=== PATIENT | male | born 1995 | race African-American/Black ===

== ENCOUNTER 2020-07-09 15:15 | Observation (INO) ==
[2020-07-09 15:30] VITALS: BMI 23.0
[2020-07-09] MEDS ORDERED: NS 500 ML IV 1,000 ML IV ONE (15:52)
[2020-07-09] MEDS ORDERED: ZOFRAN INJ 4 MG VIAL IVP ONE (15:56)
[2020-07-09] MEDS ORDERED: ZOFRAN INJ 4 MG VIAL ONE (15:59)
[2020-07-09] MEDS ORDERED: NS 1000 ML 1,000 ML ONE ×3 (15:59→22:14)
--- NOTE | 2020-07-09 16:00 | DR.HYPOGLY ---
HPI Time Seen Time Seen by Provider: 07/09/20 15:37 PCP Primary Care Physician: NFD Complaint Chief Complaint Doctors Comments: denies fever, cough Chief Complaint:: PT C/O N/V THAT STARTED THIS MORNING. PT STATES HE THINKS HIS BLOOD SUGAR IS ELEVATED AND HE THINKS HE IS IN DKA. COVID-19 Coronavirus risk:travel/contact w/high risk person: No Has patient experienced Coronavirus symptoms: No Source History Provided: Patient Mode of Arrival Mode of Arrival: Ambulatory Timing Onset of Chief Complaint: 07/09/20 PMH PMH Past Medical History: Yes Past Medical History: Diabetes and GERD Past Surgical History: No Family History History of Family Medical Conditions: Yes Family Medical History: Diabetes Mellitus and Hypertension Social History Does any household member use tobacco: No Alcohol Use: None Do you use any recreational Drugs:: No Lives With: Family Lives Where: Home Travel Risk Coronavirus risk:travel/contact w/high risk person: No Has patient experienced Coronavirus symptoms: No Infectious screening In the last 2 months have you had wt loss of >10#?: NO Have you had fever, night sweats or hemotysis?: No Have you traveled outside the country in the last 6 months?: No Isolation: Standard ROS Review of Systems Constitutional: No Symptoms Reported Eyes: No Symptoms Reported ENTM: No Symptoms Reported Respiratoy: No Symptoms Reported Cardiovascular: No Symptoms Reported Gastrointestinal/Abdominal: Vomiting Genitourinary: No Symptoms Reported Neurological: No Symptoms Reported Musculoskeletal: No Symptoms Reported Integumentary: No Symptoms Reported Hematologic/Lymphatic: No Symptoms Reported Endocrine: No Symptoms Reported Psychiatric: No Symptoms Reported All Other Systems: Reviewed and Negative PE Vital Signs Vitals: Temperature 98.2 F Pulse Rate [Right Radial] 121 Pulse Rate 113 Respiratory Rate 18 Blood Pressure [Left Arm] 111/72 Blood Pressure 114/63 O2 Sat by Pulse Oximetry 99 General Limitations: No Limitations and Language Barrier General Appearance: Alert and In No Apparent Distress Eyes Eye exam: Normal Appearance, PERRL and EOMI ENT ENT Exam: Normal Exam and Normal Oropharynx Nose Exam: Normal Nose Exam Mouth Exam: Normal Inspection Throat Exam: Normal Inspection Neck Neck Exam: Normal Inspection, Full ROM and Trachea Midline Chest Chest Inspection: Normal Inspection Respiratory Respiratory Exam: Normal Lung Sounds Bilat Respiratory Exam: Bilateral: Clear to Auscultation Cardiovascular Cardiovascular Exam: Tachycardia Abdominal Exam Abdominal Exam: Normal Inspection, Normal Bowel Sounds and Soft Extremities Extremities Exam: Normal Inspection and Full ROM Back Back Exam: Normal Inspection, Full ROM and Tenderness Neurologic Neurological Exam: Alert, Oriented X3 and CN II-XII Intact Speech: Fluid Speech Cranial Nerve Exam: EOM Function (II, III, IV, ): Normal Cerebellar Function: Normal Gait Psychiatric Psychiatric Exam: Flat Affect Skin Skin Exam: Normal Color COURSE Treatment Treatment: 2117: case discussed with DR. Anthony, admit ROR Labs Reviewed Result Diagrams: 07/09/20 16:05 07/09/20 16:05 Laboratory: WBC 15.2 X10^3/uL (3.6-10.0) H 07/09/20 16:05 RBC 4.82 X10^6/uL (4.7-6.0) 07/09/20 16:05 Hgb 14.4 g/dL (13.5-18.0) 07/09/20 16:05 Hct 44.8 % (42.0-54.0) 07/09/20 16:05 MCV 92.9 fL (80.0-100.0) 07/09/20 16:05 MCH 29.9 pg (27.0-34.0) 07/09/20 16:05 MCHC 32.2 g/dL (33.0-35.0) L 07/09/20 16:05 RDW 12.9 % (11.6-16.5) 07/09/20 16:05 Plt Count 282 X10^3/uL (150.0-450.0) 07/09/20 16:05 MPV 9.4 fL (7.4-11.0) 07/09/20 16:05 Neut % (Auto) 86.3 % (42.0-75.0) H 07/09/20 16:05 Lymph % (Auto) 9.4 % (21.0-51.0) L 07/09/20 16:05 [place] % (Auto) 3.7 % (0.0-13.0) 07/09/20 16:05 Eos % (Auto) 0.1 % (0.9-2.9) L 07/09/20 16:05 Baso % (Auto) 0.5 % (0.2-1.0) 07/09/20 16:05 Neut # (Auto) 13.1 x10^3/uL (2.2-4.8) H 07/09/20 16:05 Lymph # (Auto) 1.4 X10^3/uL (1.3-2.9) 07/09/20 16:05 [place] # (Auto) 0.6 x10^3/uL (0.3-0.8) 07/09/20 16:05 Eos # (Auto) 0.0 x10^3/uL (0.0-0.2) 07/09/20 16:05 Baso # (Auto) 0.1 X10^3/uL (0.0-0.1) 07/09/20 16:05 Absolute Nucleated RBC 0.0 /100WBC 07/09/20 16:05 Sample Site Lb 07/09/20 20:49 ABG pH 7.320 (7.35-7.45) L 07/09/20 20:49 ABG pCO2 38.0 mmHg (35.0-45.0) 07/09/20 20:49 ABG pO2 93.0 mmHg (80.0-100.0) 07/09/20 20:49 ABG HCO3 19.6 mmol/L (22-26) L 07/09/20 20:49 ABG O2 Saturation 97.0 % (90-100) 07/09/20 20:49 ABG Base Excess -6.0 mmol/L (-2.0-2.0) L 07/09/20 20:49 [place] Test N/a 07/09/20 20:49 A-a Gradient 9.0 mmHg 07/09/20 20:49 FiO2 21.0 07/09/20 20:49 Blood Gas Comments Oscar well ae 07/09/20 20:49 Sodium 133 mmol/L (136-145) L 07/09/20 16:05 Corrected Sodium 144 mmol/L (136-145) 07/09/20 16:05 Potassium 5.0 mmol/L (3.5-5.1) 07/09/20 16:05 Chloride 91 mmol/L (98-107) L 07/09/20 16:05 Carbon Dioxide 21.6 mmol/L (21-32) 07/09/20 16:05 BUN 28 mg/dL (7-18) H 07/09/20 16:05 Creatinine 1.70 mg/dL (0.70-1.30) H 07/09/20 16:05 Est GFR (MDRD) Af Amer > 60 (>60) 07/09/20 16:05 Est GFR (MDRD) Non-Af 52 (>60) L 07/09/20 16:05 Glucose 542 mg/dL (65-99) H* 07/09/20 16:05 POC Glucose (mg/dL) 258 mg/dL (65-99) H 07/09/20 22:18 Calcium 10.3 mg/dL (8.5-10.1) H 07/09/20 16:05 Corrected Calcium TNP 07/09/20 16:05 Total Bilirubin 0.70 mg/dL (0.2-1.0) 07/09/20 16:05 AST 21 Units/L (15-37) 07/09/20 16:05 ALT 27 Units/L (12-78) 07/09/20 16:05 Alkaline Phosphatase 91 Units/L (46-116) 07/09/20 16:05 Total Protein 8.9 g/dL (6.4-8.2) H 07/09/20 16:05 Albumin 4.6 g/dL (3.4-5.0) 07/09/20 16:05 Globulin 4.3 g/dL (2.5-4.5) 07/09/20 16:05 Albumin/Globulin Ratio 1.1 Ratio (1.1-2.1) 07/09/20 16:05 Lipase 40 Units/L (73-393) L 07/09/20 16:05 Acetone, Semi-Quant Moderate (NEGATIVE) H 07/09/20 19:45 SARS-CoV-2 (PCR) Negative (NEGATIVE) 07/09/20 20:58 Opioid Opioid Risk Tool Age (Mitesh box if 16-45): No History of Preadolescent Sexual Abuse: No Total: 0 Total Score Risk Category: Low Risk Copyright: [employer] predicting aberrant behaviors Diagnosis Discharge Problem: DKA (diabetic ketoacidoses) Qualifiers: Diabetes mellitus type: type 1 Diabetes mellitus complication detail: without coma Qualified Code(s): E10.10 - Type 1 diabetes mellitus with ketoacidosis without coma Instructions Forms: Precautions for COVID19 Patient Portal Social Distancing
[2020-07-09 16:18] LABS: BASOPHILS # (AUTO) 0.1 X10^3/uL (0.0-0.1); BASOPHILS % (AUTO) 0.5 % (0.2-1.0); EOSINOPHILS % (AUTO) 0.1 % (0.9-2.9); HEMATOCRIT 44.8 % (42.0-54.0); HEMOGLOBIN 14.4 g/dL (13.5-18.0); LYMPHOCYTES # (AUTO) 1.4 X10^3/uL (1.3-2.9); LYMPHOCYTES % (AUTO) 9.4 % (21.0-51.0); MEAN CORPUSCULAR HEMOGLOBIN 29.9 pg (27.0-34.0); MEAN CORPUSCULAR HGB CONC 32.2 g/dL (33.0-35.0); MEAN CORPUSCULAR VOLUME 92.9 fL (80.0-100.0); MEAN PLATELET VOLUME 9.4 fL (7.4-11.0); MONOCYTES # (AUTO) 0.6 x10^3/uL (0.3-0.8); MONOCYTES % (AUTO) 3.7 % (0.0-13.0); NEUTROPHILS # (AUTO) 13.1 x10^3/uL (2.2-4.8); NEUTROPHILS % (AUTO) 86.3 % (42.0-75.0); PLATELET COUNT 282 X10^3/uL (150.0-450.0); RED BLOOD COUNT 4.82 X10^6/uL (4.7-6.0); RED CELL DISTRIBUTION WIDTH 12.9 % (11.6-16.5); WHITE BLOOD COUNT 15.2 X10^3/uL (3.6-10.0)
[2020-07-09 16:36] LABS: ALANINE AMINOTRANSFERASE 27 Units/L (12-78); ALBUMIN 4.6 g/dL (3.4-5.0); ALKALINE PHOSPHATASE 91 Units/L (46-116); ASPARTATE AMINO TRANSFERASE 21 Units/L (15-37); BLOOD UREA NITROGEN 28 mg/dL (7-18); CALCIUM 10.3 mg/dL (8.5-10.1); CARBON DIOXIDE 21.6 mmol/L (21-32); CHLORIDE 91 mmol/L (98-107); LIPASE 40 Units/L (73-393); SODIUM 133 mmol/L (136-145); TOTAL PROTEIN 8.9 g/dL (6.4-8.2); eGFR NON BLACK RACES 52 (>60)
[2020-07-09 16:39] LABS: COR NA(FOR HYPERGLY) 144 mmol/L (136-145)
[2020-07-09] MEDS ORDERED: HumuLIN R ONE ×4 (17:05→22:29)
[2020-07-09] MEDS ORDERED: HumuLIN R IV ONE (17:05)
[2020-07-09] MEDS ORDERED: PROTONIX INJ 40 MG VIAL ONE (18:07)
[2020-07-09] MEDS ORDERED: PROTONIX INJ 40 MG VIAL IVP ONE (18:09)
[2020-07-09] MEDS ORDERED: HumuLIN R IV STA (18:10)
[2020-07-09] MEDS ORDERED: NS 1000 ML 1,000 ML IV ONE (18:17)
[2020-07-09] MEDS ORDERED: DEMEROL INJ IVP ONE (19:27)
[2020-07-09] MEDS ORDERED: DEMEROL INJ ONE (19:31)
[2020-07-09 20:54] LABS: ABG HCO3 19.6 mmol/L (22-26)
[2020-07-09] MEDS: NS 1000 ML 1,000 ML IV SCH (22:21)
[2020-07-09] MEDS: HumuLIN R SUBCUT PRN (22:21)
[2020-07-09 22:36] LABS: BILIRUBIN,URINE NEGATIVE (NEGATIVE); BLOOD/HEMOGLOBIN,URINE NEGATIVE (NEGATIVE); GLUCOSE, URINE 4+ (NEGATIVE); KETONES,URINE 4+ (NEGATIVE); LEUKOCYTE ESTERASE ,URINE NEGATIVE (NEGATIVE); NITRITES,URINE NEGATIVE (NEGATIVE); PROTEIN,URINE 1+ (NEGATIVE); UROBILINOGEN,URINE NORMAL (NORMAL)
[2020-07-09 22:57] LABS: APPEARANCE,URINE CLEAR (CLEAR); BACTERIA,URINE NEGATIVE /HPF (NEGATIVE); COLOR,URINE YELLOW (YELLOW); RBC,URINE NONE SEEN /HPF (0-3); SQUAMOUS EPITHELIAL CELL,UR NEGATIVE /HPF (NEGATIVE)
[2020-07-09] MEDS ORDERED: OFIRMEV IV 1000 MG VIAL 1,000 MG/100 ML VIAL IV PRN (23:05)
[2020-07-09] MEDS ORDERED: ULTRAM PO PRN (23:13)
[2020-07-10] MEDS: NS 1000 ML 1,000 ML IV SCH (05:55)
[2020-07-10 06:15] LABS: BASOPHILS # (AUTO) 0.1 X10^3/uL (0.0-0.1); BASOPHILS % (AUTO) 0.5 % (0.2-1.0); EOSINOPHILS # (AUTO) 0.1 x10^3/uL (0.0-0.2); HEMOGLOBIN 12.7 g/dL (13.5-18.0); LYMPHOCYTES # (AUTO) 3.8 X10^3/uL (1.3-2.9); LYMPHOCYTES % (AUTO) 27.2 % (21.0-51.0); MEAN CORPUSCULAR HEMOGLOBIN 29.3 pg (27.0-34.0); MEAN CORPUSCULAR HGB CONC 32.5 g/dL (33.0-35.0); MEAN CORPUSCULAR VOLUME 90.2 fL (80.0-100.0); MEAN PLATELET VOLUME 9.4 fL (7.4-11.0); MONOCYTES # (AUTO) 0.9 x10^3/uL (0.3-0.8); MONOCYTES % (AUTO) 6.4 % (0.0-13.0); NEUTROPHILS # (AUTO) 9.2 x10^3/uL (2.2-4.8); NEUTROPHILS % (AUTO) 64.9 % (42.0-75.0); PLATELET COUNT 245 X10^3/uL (150.0-450.0); RED BLOOD COUNT 4.33 X10^6/uL (4.7-6.0); WHITE BLOOD COUNT 14.1 X10^3/uL (3.6-10.0)
[2020-07-10 06:27] LABS: ALANINE AMINOTRANSFERASE 24 Units/L (12-78); ALBUMIN 3.4 g/dL (3.4-5.0); ALKALINE PHOSPHATASE 67 Units/L (46-116); ASPARTATE AMINO TRANSFERASE 23 Units/L (15-37); BLOOD UREA NITROGEN 17 mg/dL (7-18); CALCIUM 8.4 mg/dL (8.5-10.1); CARBON DIOXIDE 25.1 mmol/L (21-32); CHLORIDE 103 mmol/L (98-107); COR NA(FOR HYPERGLY) 139 mmol/L (136-145); CREATININE 1.28 mg/dL (0.70-1.30); SODIUM 138 mmol/L (136-145); TOTAL PROTEIN 6.9 g/dL (6.4-8.2); eGFR NON BLACK RACES > 60 (>60)
[2020-07-10] MEDS ORDERED: ZOFRAN INJ 4 MG VIAL IVP PRN (08:32)
[2020-07-10] MEDS: NS 1000 ML 1,000 ML with SODIUM BICARBONATE 8.4% INJ ADULT 50 ML IV SCH ×4 (11:05→20:17)
[2020-07-10] MEDS: HumuLIN R SUBCUT PRN ×3 (11:56→21:17)
--- NOTE | 2020-07-10 21:34 | DR.H&P ---
H&P - History & Physical for Day of: H&P Date: 07/09/20 - Chief Complaint Chief Complaint: NAUSEA AND VOMITING, ELEVATED BLOOD GLUCOSE LEVELS - History of Present Illness History of Present Illness: IS A 24 YEAR OLD MALE WHO PRESENTED TO THE ER WITH COMPLAINTS OF NAUSEA AND VOMITING THAT STARTED EARLIER IN THE MORNING. HE STATED, I THINK MY BLOOD SUGAR IS ELEVATED AND I THINK IM IN DKA. PATIENT DOES HAVE A HISTORY OF DIABETES AND GERD. ON ARRIVAL TO THE ER, VITALS WERE 98.2-113-20-99%-114/63. LABS WERE OBTAINED. ABNORMAL LAB VALUES INCLUDE THE FOLLOWING: WBC 15.2, SODIUM 133, CHLORIDE 91, BUN 28, CREATININE 1.70, GLUCOSE 542, CALCIUM 10.3, TOTAL PROTEIN 8.9, LIPASE 40. URINALYSIS REVEALED KETONES 4+, GLUCOSE 4+, PROTEIN 1+. ACETONES MODERATE. COVID-19 NEGATIVE. ABG WAS OBTAINED AND REVEALED: PH 7.320, PC02 38, P02 93, HC03 19.6, 02 SAT 97, BASE EXCESS -6.0, FI02 21.0. HE WAS GIVEN TWO, ONE LITER NORMAL SALINE BOLUSES, ZOFRAN 4MG IV X 1, HUMULIN R 10 UNITS X 2 DOSES 17:09 AND 18:15, PROTONIX 40MG IV X 1, AND DEMEROL 25MG IV X 1 IN THE ER. BLOOD GLUCOSE DECREASED TO 244. HE WAS ADMITTED FOR FURTHER EVALUATION AND TREATMENT OF DKA. HE WAS STARTED ON NORMAL SALINE AT 125ML/HR WITH ONE AMP BICARB IN EACH LITER OF IVF, HUMULIN R SLIDING SCALE, OTBS ACHS, ZOFRAN 4MG IV Q6H PRN, AND ULTRAM 50MG PO Q4H PRN. WE WILL CONTINUE TO MONITOR ACETONE LEVELS. OTHERWISE, WE WILL FOLLOW UP WITH AM LABS AND CONTINUE TO MONITOR. - Past Medical History Past Medical History: Diabetes, GERD - Family History Family Medical History: Diabetes Mellitus, Hypertension - Social History Does any household member use tobacco: No Alcohol Use: Occasionally Drug Use: None - Medications Home Medications: No Known Drug Allergies Allergy (Verified 07/09/20 15:26) CONTINUE taking the following medications NK 07/10/20 [History] - Review of Systems Constitutional: Weakness Eyes: No Symptoms Reported ENT: No Symptoms Reported Respiratory: No Symptoms Reported Cardiovascular: No Symptoms Reported Gastrointestinal: See HPI, Nausea, Vomiting Genitourinary: No Symptoms Reported Musculoskeletal: No Symptoms Reported Skin: No Symptoms Reported Neurological: Weakness - Physical Exam Vital Signs: Temperature 98.2 F Pulse Rate [Right Radial] 90 Pulse Rate 113 Respiratory Rate 12 Blood Pressure [Left Arm] 106/55 Blood Pressure 114/63 O2 Sat by Pulse Oximetry 99 Oriented: Normal Eyes: Normal Ear: Normal Nose: Normal Throat: Normal Respiratory: Clear Throughout Cardiovascular: Normal : Normal Auscultation: Bowel Sounds: Normal Palpation: Normal Tenderness: Normal Skin: Normal Musculoskeletal: Normal Psychiatric: Normal Mood Description: Calm Affect: Normal Speech Pattern: Clear - Assessment/Plan (1) DKA (diabetic ketoacidoses) Qualifiers: Diabetes mellitus type: type 1 Diabetes mellitus complication detail: without coma Qualified Code(s): E10.10 - Type 1 diabetes mellitus with ketoacidosis without coma Status: Acute Plan: ADMIT, NORMAL SALINE AT 125ML/HR WITH ONE AMP BICARB IN EACH LITER OF IVF, HUMULIN R SLIDING SCALE, OTBS ACHS, ZOFRAN 4MG IV Q6H PRN, AND ULTRAM 50MG PO Q4H PRN. - Allergies Allergies/Adverse Reactions: Allergies Allergy/AdvReac Type Severity Reaction Status Date / Time No Known Drug Allergies Allergy Verified 07/09/20 15:26
[2020-07-11] MEDS: NS 1000 ML 1,000 ML with SODIUM BICARBONATE 8.4% INJ ADULT 50 ML IV SCH ×2 (02:59)
[2020-07-11 05:21] LABS: ABG ALLEN TEST POS; ABG BASE EXCESS 0.8 mmol/L (-2.0-2.0)
[2020-07-11 06:15] LABS: BASOPHILS # (AUTO) 0.1 X10^3/uL (0.0-0.1); EOSINOPHILS # (AUTO) 0.2 x10^3/uL (0.0-0.2); EOSINOPHILS % (AUTO) 2.3 % (0.9-2.9); HEMATOCRIT 36.3 % (42.0-54.0); HEMOGLOBIN 11.8 g/dL (13.5-18.0); LYMPHOCYTES # (AUTO) 3.2 X10^3/uL (1.3-2.9); LYMPHOCYTES % (AUTO) 39.9 % (21.0-51.0); MEAN CORPUSCULAR HEMOGLOBIN 29.6 pg (27.0-34.0); MEAN CORPUSCULAR HGB CONC 32.5 g/dL (33.0-35.0); MEAN CORPUSCULAR VOLUME 90.9 fL (80.0-100.0); MEAN PLATELET VOLUME 10.3 fL (7.4-11.0); MONOCYTES # (AUTO) 0.6 x10^3/uL (0.3-0.8); MONOCYTES % (AUTO) 7.2 % (0.0-13.0); NEUTROPHILS # (AUTO) 3.9 x10^3/uL (2.2-4.8); NEUTROPHILS % (AUTO) 49.6 % (42.0-75.0); PLATELET COUNT 181 X10^3/uL (150.0-450.0); RED BLOOD COUNT 3.99 X10^6/uL (4.7-6.0); RED CELL DISTRIBUTION WIDTH 12.8 % (11.6-16.5); WHITE BLOOD COUNT 7.9 X10^3/uL (3.6-10.0)
[2020-07-11 06:23] LABS: SERUM ACETONE SMALL (NEGATIVE)
[2020-07-11 06:33] LABS: ALANINE AMINOTRANSFERASE 20 Units/L (12-78); ALBUMIN 2.8 g/dL (3.4-5.0); ALKALINE PHOSPHATASE 61 Units/L (46-116); ASPARTATE AMINO TRANSFERASE 20 Units/L (15-37); BLOOD UREA NITROGEN 9 mg/dL (7-18); CALCIUM 8.3 mg/dL (8.5-10.1); CARBON DIOXIDE 25.7 mmol/L (21-32); CHLORIDE 102 mmol/L (98-107); COR CA(FOR HYPOALB) 9.3 mg/dL (8.5-10.1); COR NA(FOR HYPERGLY) 141 mmol/L (136-145); CREATININE 1.16 mg/dL (0.70-1.30); SODIUM 136 mmol/L (136-145); eGFR NON BLACK RACES > 60 (>60)
[2020-07-11] MEDS: HumuLIN R SUBCUT PRN ×2 (06:33→12:10)
[2020-07-11 08:13] VITALS: BP 107/68
== END 2020-07-11 12:40 | disposition home or self-care (01) ==
LOC: MED/SURG 15:26 → ER 15:26 → MED/SURG 22:49
PROVIDERS: ADMIT Internal Medicine; ATTEND Internal Medicine
DX: Z20.828 Contact with and (suspected) exposure to other viral communicable diseases; K21.9 Gastro-esophageal reflux disease without esophagitis; D72.828 Other elevated white blood cell count; E10.10 Type 1 diabetes mellitus with ketoacidosis without coma; R11.2 Nausea with vomiting, unspecified